=== PATIENT | male | born 1995 | race Caucasian/White ===

== ENCOUNTER 2017-05-23 01:02 | Emergency (ER) | payer OTHER ==
[~2017-05-23] VITALS: Ht 177.8 cm; Wt 90.0 kg
[2017-05-23 01:07] VITALS: TEMP 36.7; Ht 177.8 cm; Wt 90.0 kg
[2017-05-23] MEDS ORDERED: SODIUM CHLORIDE 0.9% 1000ML 1,000 ML IV STA (01:18)
[2017-05-23] MEDS ORDERED: DiphenhydrAMINE HCL 50 MG/ML VIAL IV STA (01:18)
--- NOTE | 2017-05-23 01:22 | EMERGENCY ROOM VISIT NOTE ---
History Report prepared by Estephania: Helena Farfan Under the Supervision of: Dr. Aislinn Sanchez M.D. First contact with patient: 01:12 Chief Complaint: OVERDOSE (ACCIDENTAL) Stated Complaint: drug uses Nursing Triage Summary: patient states around 2 hours ago he smoked marijuana , which he normally does, but began having palpitations and feeling impending doom. History of Present Illness The patient is a 21 year old male who presents to the Emergency Room with complaints of an accidental drug overdose occurring 2 hours prior to arrival. The patient states that he smoked marijuana which he has done before, and that he has smoked from this batch before. He reports that his heart began to race, which has never happened to him before. He states that he does not have a history of panic attacks, but that he has never felt like this before. He believes that he may have had a panic attack before he started to smoke the marijuana. The patient denies drinking energy drinks. He denies any active medical problems. Source of History: patient Onset: 2 hours prior to arrival Position: other (global) Quality: other (drug overdose ) Timing: constant Note: additional symptom: racing heart Review of Systems See HPI for pertinent positives & negatives. A total of 10 systems reviewed and were otherwise negative. Past Medical & Surgical Medical Problems: (1) No active medical problems Family History No pertinent family history stated. Social History Smoking Status: Current Some Day Smoker Drug Use: marijuana Occupation Status: student Current/Historical Medications No Active Prescriptions or Reported Meds Allergies Coded Allergies: Hydromorphone (Verified Allergy, Intermediate, RASH/ITCHING, 05/23/17) Physical Exam Vital Signs Date Time Temp Pulse Resp B/P (MAP) Pulse Ox O2 Delivery O2 Flow Rate FiO2 05/23/17 03:18 95 20 135/73 96 Room Air 05/23/17 02:24 116 20 143/85 98 Room Air 05/23/17 02:02 116 20 158/91 98 Room Air 05/23/17 01:10 138 05/23/17 01:07 36.7 147 20 185/101 Physical Exam Vital signs reviewed. General: Well-appearing male, in no significant distress. HEENT: No scleral icterus, PERRLA, neck supple. Atraumatic. Cardiovascular: Tachycardic and regular rhythm, no extra sounds. Pulmonary: Clear to auscultation bilaterally, normal work of breathing. Abdomen: Soft, nontender, nondistended, positive bowel sounds. Musculoskeletal: Atraumatic, no peripheral edema. Neurologic: Patient awake alert and oriented x 3, full strength in all 4 extremities. Cranial nerves 2 through 12 grossly intact. Skin: Warm, dry, no rash Medical Decision & Procedures Laboratory Results 05/23/17 01:00 Red Blood Count 5.33, Mean Corpuscular Volume 88.0, Mean Corpuscular Hemoglobin 30.8, Mean Corpuscular Hemoglobin Concent 35.0, Mean Platelet Volume 9.8 05/23/17 01:00 Test 05/23/17 01:00 05/23/17 01:40 White Blood Count 13.90 K/uL (4.8-10.8) Red Blood Count 5.33 M/uL (4.7-6.1) Hemoglobin 16.4 g/dL (14.0-18.0) Hematocrit 46.9 % (42-52) Mean Corpuscular Volume 88.0 fL (80-100) Mean Corpuscular Hemoglobin 30.8 pg (25-34) Mean Corpuscular Hemoglobin Concent 35.0 g/dl (32-36) Platelet Count 402 K/uL (130-400) Mean Platelet Volume 9.8 fL (7.4-10.4) RDW Standard Deviation 40.0 fL (36.4-46.3) RDW Coefficient of Variation 12.6 % (11.5-14.5) Neutrophils % (Manual) 39.3 % Lymphocytes % (Manual) 41.0 % Monocytes % (Manual) 3.6 % Neutrophils # (Manual) 5.46 K/uL (1.4-6.5) Total Absolute Neutrophils 5.46 K/uL (1.4-6.5) Lymphocytes # (Manual) 5.70 K/uL (1.2-3.4) Total Absolute Lymphocytes 7.94 K/uL (1.2-3.4) Monocytes # (Manual) 0.50 K/uL (0.11-0.59) Percent Large Granular Lymphocytes 16.1 % Absolute Large Granular Lymphocytes 2.24 K/uL Red Blood Cell Morphology Unremarkable Anion Gap 12.0 mmol/L (3-11) Est Creatinine Clear Calc Drug Dose 125.5 ml/min Estimated GFR () 116.5 Estimated GFR (Non- 100.5 BUN/Creatinine Ratio 12.6 (10-20) Calcium Level 8.9 mg/dl (8.5-10.1) Magnesium Level 2.1 mg/dl (1.8-2.4) Total Bilirubin 0.6 mg/dl (0.2-1) Direct Bilirubin 0.1 mg/dl (0-0.2) Aspartate Amino Transf (AST/SGOT) 19 U/L (15-37) Alanine Aminotransferase (ALT/SGPT) 38 U/L (12-78) Alkaline Phosphatase 79 U/L (45-117) Total Protein 8.5 gm/dl (6.4-8.2) Albumin 4.6 gm/dl (3.4-5.0) Urine Color YELLOW Urine Appearance CLEAR (CLEAR) Urine pH 6.5 (4.5-7.5) Urine Specific [place] 1.014 (1.000-1.030) Urine Protein NEG (NEG) Urine Glucose (UA) NEG (NEG) Urine Ketones NEG (NEG) Urine Occult Blood NEG (NEG) Urine Nitrite NEG (NEG) Urine Bilirubin NEG (NEG) Urine Urobilinogen NEG (NEG) Urine Leukocyte Esterase TRACE (NEG) Urine WBC (Auto) 5-10 /hpf (0-5) Urine RBC (Auto) 0-4 /hpf (0-4) Urine Hyaline Casts (Auto) 0 /lpf (0-5) Urine Epithelial Cells (Auto) 5-10 /lpf (0-5) Urine Bacteria (Auto) NEG (NEG) Urine Opiates Screen NEG (NEG) Urine Methadone, Qualitative NEG (NEG) Urine Barbiturates NEG (NEG) Urine Phencyclidine (PCP) Level NEG (NEG) Ur Amphetamine/Methamphetamine NEG (NEG) MDMA (Ecstasy) Screen NEG (NEG) Urine Benzodiazepines Screen NEG (NEG) Urine Cocaine Metabolite NEG (NEG) Urine Marijuana (THC) POS (NEG) Laboratory results per my review. Medications Administered Medications (Trade) Dose Ordered Sig/Can Route Start Time Stop Time Status Last Admin Dose Admin Sodium Chloride 1,000 ml @ 999 mls/hr Q1H1M STAT IV 05/23/17 01:18 05/23/17 02:18 DC 05/23/17 01:27 999 MLS/HR Diphenhydramine HCl (Benadryl Inj) 50 mg NOW STAT IV 05/23/17 01:18 05/23/17 01:20 DC 05/23/17 01:27 50 MG Potassium Chloride (Klor-Con M10) 40 meq NOW STAT PO 05/23/17 02:52 05/23/17 02:53 DC 05/23/17 03:23 40 MEQ ECG Indication: tachycardia Rate (beats per minute): 131 Rhythm: sinus tachycardia Findings: no acute ischemic change, no ectopy ED Course 0115: Past medical records reviewed. The patient was evaluated in room B4B. A complete history and physical examination was performed. 0118: Ordered Benadryl Inj 50 mg IV, Sodium Chloride 1,000 ml @ 999 mls/hr IV. 0252: Ordered Potassium Chloride 40 meq PO. 0300: Upon reevaluation, the patient appeared to have improvement of his symptoms. I discussed findings with him. He verbalized agreement of the treatment plan. He was discharged home. Medical Decision Differential diagnosis: Etiologies such as premature contractions, electrolyte abnormality, cardiac dysrhythmia, thyroid dysfunction, pulmonary embolism, infection, gastrointestinal, as well as others were entertained. This patient was evaluated and appeared to be in no distress. IV access was obtained and laboratory work was drawn. Patient was placed on the hospital monitor and found to be in a sinus tachycardia. I suspect his marijuana was contaminated with another substance. The patient was given IV Benadryl and IV normal saline solution. He was observed until he had improvement in his symptoms and heart rate. The patient stated he was ready for discharge. Laboratory work was unrevealing. He was strongly advised against using marijuana, particularly on a daily basis. He will avoid excessive stimulants and follow-up with his PCP if symptoms continue. Patient was advised to return to the ER for worsening of symptoms or any medical concerns. Medication Reconcilliation Current Medication List: was personally reviewed by me Blood Pressure Screening Patient's blood pressure: Elevated blood pressure Blood pressure disposition: Elevated BP felt to be situational Impression Primary Impression: Marijuana intoxication Scribe Attestation The scribe's documentation has been prepared under my direction and personally reviewed by me in its entirety. I confirm that the note above accurately reflects all work, treatment, procedures, and medical decision making performed by me. Departure Information Dispostion Home / Self-Care Prescriptions No Active Prescriptions or Reported Meds Referrals No Doctor, Assigned (PCP) Forms HOME CARE DOCUMENTATION FORM, IMPORTANT VISIT INFORMATION, WORK / SCHOOL INSTRUCTIONS Patient Instructions [facility] Additional Instructions Diagnosis: Marijuana intoxication Please avoid future use of marijuana. Drink plenty of clear fluids. Follow-up with your physician or [facility] services if symptoms persist. Return to the emergency department for worsening of symptoms or any medical concerns.
[2017-05-23 01:32] LABS: HEMATOCRIT 46.9 % (42-52); MEAN CORPUSCULAR HEMOGLOBIN 30.8 pg (25-34); MEAN PLATELET VOLUME 9.8 fL (7.4-10.4); PLATELET COUNT 402 K/uL (130-400); RED BLOOD COUNT 5.33 M/uL (4.7-6.1)
[2017-05-23 01:50] LABS: URINE APPEARANCE CLEAR (CLEAR); URINE BILIRUBIN NEG (NEG); URINE COLOR YELLOW; URINE NITRITE NEG (NEG); URINE PH 6.5 (4.5-7.5); URINE SPECIFIC GRAVITY 1.014 (1.000-1.030); UROBILINOGEN NEG (NEG); ZZUR CULT IF INDIC CLEAN CATCH NO
[2017-05-23 01:55] LABS: MANUAL MICROSCOPIC REQUIRED? NO; REVIEW REQ? NO
[2017-05-23 02:14] LABS: BUN/CREATININE RATIO 12.6 (10-20); CALCIUM 8.9 mg/dl (8.5-10.1); CREATININE 1.06 mg/dl (0.60-1.40)
[2017-05-23 02:19] LABS: POTASSIUM 2.9 mmol/L (3.5-5.1)
[2017-05-23 02:24] LABS: MAGNESIUM 2.1 mg/dl (1.8-2.4)
[2017-05-23 02:31] LABS: COMPLETE YES; LARGE GRANULAR LYMPH ABSOLUTE 2.24 K/uL; LARGE GRANULAR LYMPHOCYTE % 16.1 %; NEUTROPHILS % 39.3 %
[2017-05-23] MEDS ORDERED: POTASSIUM CHLORIDE 10 MEQ TABCR PO STA (02:52)
[2017-05-23 03:18] VITALS: BP 135/73; PULSE 95; O2SAT 96
[2017-05-23 03:32] LABS: BENZODIAZEPINE, URINE NEG (NEG); COCAINE,URINE NEG (NEG); PHENCYCLIDINE, URINE NEG (NEG)
== END 2017-05-23 03:26 | disposition home or self-care (01) ==
LOC: C.EDB 01:03
DX: F12.929 Cannabis use, unspecified with intoxication, unspecified (principal); F17.200 Nicotine dependence, unspecified, uncomplicated